=== PATIENT | female | born 1980 | race Caucasian/White ===

== ENCOUNTER 2018-12-01 13:38 | Emergency (ER) | payer MEDICAID, OTHER ==
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
[2018-12-01] MEDS ORDERED: Venlafaxine 37.5 MG Cap.ER PO ONE (16:13)
[2018-12-01] MEDS ORDERED: Diazepam 5 MG Tab PO ONE (16:13)
[2018-12-01] MEDS ORDERED: Gabapentin 300 MG Cap PO ONE ×2 (16:13→16:47)
[2018-12-01] MEDS ORDERED: Metoprolol Succinate 50 MG Tab.ER PO ONE (16:13)
[2018-12-01] MEDS ORDERED: Venlafaxine 75 MG Cap.ER PO ONE (16:45)
== END 2018-12-01 18:45 | disposition home or self-care (01) ==
LOC: JP.ED 13:38
DX: R11.0 Nausea (principal); T42.4X5A Adverse effect of benzodiazepines, initial encounter; Z91.040 Latex allergy status; F10.10 Alcohol abuse, uncomplicated; F41.9 Anxiety disorder, unspecified; F32.9 Major depressive disorder, single episode, unspecified; J45.909 Unspecified asthma, uncomplicated; F17.210 Nicotine dependence, cigarettes, uncomplicated; Z88.8 Allergy status to other drugs, medicaments and biological substances; Z79.899 Other long term (current) drug therapy; Z79.51 Long term (current) use of inhaled steroids; Z90.49 Acquired absence of other specified parts of digestive tract; Z86.2 Personal history of diseases of the blood and blood-forming organs and certain disorders involving the immune mechanism
CPT/HCPCS: 99283; A9270

== ENCOUNTER 2019-01-10 19:38 | Emergency (ER) | payer OTHER, MEDICAID ==
[2019-01-10] MEDS ORDERED: LORazepam 2 MG/ML SDV IM ONE (20:07)
[2019-01-10] MEDS ORDERED: diphenhydrAMINE 50 MG/ML SDV IM ONE (20:07)
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
[2019-01-10] MEDS ORDERED: Acetaminophen 325 MG Tab PO ONE (21:36)
[2019-01-10] MEDS ORDERED: hydrOXYzine HCl 100 MG/2 ML SDV IM ONE (21:42)
[2019-01-10] MEDS ORDERED: fentaNYL 100 MCG/2 ML SDV NASBOTH ONE (22:33)
[2019-01-11] MEDS ORDERED: Ibuprofen 600 MG Tab PO ONE (00:03)
[2019-01-11] MEDS ORDERED: LORazepam 1 MG Tab PO ONE (00:03)
== END 2019-01-11 00:14 | disposition home or self-care (01) ==
LOC: JP.ED 19:38
DX: F41.0 Panic disorder [episodic paroxysmal anxiety] (principal); I10 Essential (primary) hypertension; J45.909 Unspecified asthma, uncomplicated; F41.9 Anxiety disorder, unspecified; F32.9 Major depressive disorder, single episode, unspecified; F17.210 Nicotine dependence, cigarettes, uncomplicated; Z91.040 Latex allergy status; Z88.5 Allergy status to narcotic agent; Z88.6 Allergy status to analgesic agent
CPT/HCPCS: 36415; 80053; 80305; 80320; 80329; 84484; 85025; 93005; 96372; 99284; A9270; J1200; J2060; J3010; J3410; G0480

== ENCOUNTER 2019-01-11 10:15 | Emergency (ER) | payer OTHER, MEDICAID ==
--- NOTE | 2019-01-11 10:51 | EDM.PDOC ---
ED HPI GENERAL MEDICAL PROBLEM - General Chief Complaint: Headache Stated Complaint: MIGRAINE Time Seen by Provider: 01/11/19 10:35 Source of Information: Reports: Patient History Limitations: Reports: No Limitations - History of Present Illness INITIAL COMMENTS - FREE TEXT/NARRATIVE: 38-year-old female who was seen in the emergency room last night for a "headache " received a large workup, numerous labs at numerous medications. She was discharged and slept soundly in the lobby all night until morning, and when nursing went out to wake her up this morning she sat up and instantly complained of a headache and wanted to be seen again. It was felt she wasn't even awaken enough to know if she had a headache. She claims that it is frontal in nature and would work best for her yesterday was the fentanyl in her nose. Nauseated but no vomiting. Onset: Unknown/Unsure Associated Symptoms: Reports: Headaches, Nausea/Vomiting. Denies: Chest Pain, Shortness of Breath Headache Pain Score (Numeric/FACES): 10 - Related Data Allergies Allergy/AdvReac Type Severity Reaction Status Date / Time latex Allergy Itching Verified 01/11/19 10:30 tramadol Allergy Swelling Verified 01/11/19 10:30 ketorolac [From Toradol] AdvReac Nausea and Verified 01/11/19 10:30 Vomiting Home Meds: Home Meds Albuterol Sulfate [Albuterol Sulfate Hfa] 1 puff INH QID PRN 11/30/18 [History] Fluticasone/Salmeterol [Advair 500-50] 1 puff INH BID 11/30/18 [History] Gabapentin [Neurontin] 600 mg PO TID 11/30/18 [History] Metoprolol Succinate [Toprol XL 50mg] 50 mg PO DAILY 11/30/18 [History] Mirtazapine 30 mg PO BEDTIME 11/30/18 [History] QUEtiapine [SEROquel] 600 mg PO BEDTIME 11/30/18 [History] Venlafaxine HCl [Venlafaxine ER] 3 cap PO DAILY 11/30/18 [History] clonazePAM [Klonopin] 1 mg PO QID PRN 11/30/18 [History] hydrOXYzine pamoate [Hydroxyzine Pamoate] 50 mg PO QID 11/30/18 [History] Past Medical History Cardiovascular History: Reports: Hypertension Respiratory History: Reports: Asthma 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: Musculoskeletal History: Reports: Fracture Neurological History: Reports: Migraines, Seizure Psychiatric History: Reports: Anxiety, Depression, Other (See Below) Other Psychiatric History: insomnia Hematologic History: Reports: Anemia Dermatologic History: Reports: Eczema - Infectious Disease History Infectious Disease History: Reports: Chicken Pox - Past Surgical History GI Surgical History: Reports: Appendectomy Musculoskeletal Surgical History: Reports: Other (See Below) Other Musculoskeletal Surgeries/Procedures:: wrist surgery Social & Family History - Tobacco Use Smoking Status *Q: Current Every Day Smoker Years of Tobacco use: 15 Packs/Tins Daily: 0.5 - Caffeine Use Caffeine Use: Reports: Coffee - Recreational Drug Use Recreational Drug Use: No ED ROS GENERAL - Review of Systems Review Of Systems: See Below Constitutional: Reports: Malaise. Denies: Fever, Chills HEENT: Reports: Other (Some photophobia) Respiratory: Reports: No Symptoms GI/Abdominal: Reports: Nausea, Vomiting Skin: Reports: No Symptoms - Physical Exam Exam: See Below Exam Limited By: No Limitations General Appearance: Alert, Anxious, Other (Acting uncomfortable, photophobic) Eye Exam: Bilateral Eye: PERRL Head Exam: Atraumatic Respiratory/Chest: No Respiratory Distress Neuro Exam (Abbreviated): Alert, Oriented, No Motor/Sensory Deficits (Able to ambulate without difficulty) Psychiatric: Anxious Skin Exam: Warm, Dry Course - Vital Signs Last Recorded V/S: Last Vital Signs Temp 99.3 F 01/11/19 10:34 Pulse 90 01/11/19 12:31 Resp 18 01/11/19 12:31 BP 151/99 H 01/11/19 12:31 Pulse Ox 98 01/11/19 12:31 - Orders/Labs/Meds Meds: Medications Discontinued Medications Generic Name Dose Route Start Last Admin Trade Name Freq PRN Reason Stop Dose Admin Metoclopramide HCl 10 mg 01/11/19 12:24 01/11/19 12:30 Reglan IM 01/11/19 12:25 10 mg ONETIME ONE Administration Sumatriptan Succinate 6 mg 01/11/19 10:48 01/11/19 11:08 Imitrex SUBCUT 01/11/19 10:49 6 mg ONETIME ONE Administration - Re-Assessments/Exams Free Text/Narrative Re-Assessment/Exam: 01/11/19 10:51 Patient was given 6 mg of subcutaneous Imitrex. 01/11/19 11:43 Before the medication was fully given and injected into the subcutaneous tissue , she was already reacting with a "horrible side effect". She wanted the medication she received last night which was fentanyl and Ativan. I told her I was uncomfortable with these medications, and I offered her a shot of Solu- Medrol to reduce inflammation and she immediately refused that, I offered Toradol and she said she is allergic which according to records she gets nausea and vomiting which is a side effect and would be uncommon with IM medication. We then had a pharmacy consultation and elected to try 1 mg of DHE IM. 01/11/19 13:18 We were unable use of DHE because of the recent sumatriptan, so she was given 10 mg of IM Reglan. Within 30 minutes she was sleeping soundly, so will be discharged when she wakes up. Departure - Departure Time of Disposition: 14:38 Disposition: Home, Self-Care 01 Clinical Impression: Migraine - Discharge Information Instructions: Recurrent Migraine Headache Referrals: PCP,None [Primary Care Provider] - Forms: ED Department Discharge Care Plan Goals: Continue current medications, recheck with your regular doctor in the next 3-5 days if not improving satisfactorily.
[2019-01-11] MEDS: SUMAtriptan 6 MG/0.5 ML SDV SUBCUT ONE (11:08)
[2019-01-11] MEDS ORDERED: Dihydroergotamine 1 MG/ML SDV IM ONE (11:46)
[2019-01-11] MEDS: Metoclopramide 10 MG/2 ML SDV IM ONE (12:30)
[2019-01-11 12:31] VITALS: BP 151/99; PULSE 90
== END 2019-01-11 14:38 | disposition home or self-care (01) ==
LOC: JP.ED 10:15
DX: G43.909 Migraine, unspecified, not intractable, without status migrainosus (principal); I10 Essential (primary) hypertension; J45.909 Unspecified asthma, uncomplicated; F32.9 Major depressive disorder, single episode, unspecified; F41.9 Anxiety disorder, unspecified; F17.210 Nicotine dependence, cigarettes, uncomplicated; Z88.5 Allergy status to narcotic agent; Z88.6 Allergy status to analgesic agent; Z91.040 Latex allergy status; Z79.899 Other long term (current) drug therapy; F41.0 Panic disorder [episodic paroxysmal anxiety]
CPT/HCPCS: 36415; 80053; 80305-QW; 84484; 85025; 93005; 96372; 99283-25; 99284-25; A9270-GY; G0480; J1200; J2060; J2765; J3010; J3030; J3410